=== PATIENT | female | born 1930 | race Caucasian/White ===

== ENCOUNTER 2017-02-04 18:28 | Inpatient (IN) | payer OTHER, BC, MEDICARE ==
[~2017-02-04] VITALS: Ht 149.9 cm; Wt 48.1 kg
[~2017-02-04 18:28] MED LIST: ACEPHEN650 MG PR; APAP325 MG PO; AZO BLADDER CO300 MG PO; AZO CRANBERRY PO; AZO CRANBERRY450 MG PO; BISAC-EVAC10 MG PR; CRANBERRY400 M1 PO; EXELON TOP; FIBRO-TABS1 TAB PO; FLEET ENEMA 131 UNIT RC; HALDOL 1MG TABLE1 MG PO; HALOPERIDOL1 MG PO; MERREM IV1 GM IV; MILK OF MAGNESI30 ML PO; MULTI-VIT WITH50 ML PO; NITROFURANTOIN100 MG PO; PRAMIPEXOLE DI0.5 MG PO; PRAVASTATIN SOD10 MG PO; PRINIVIL 5MG5 MG PO; RESOURCE 2.0 2237 ML PO; SINEMET 25-1001 TAB PO; TRAZODONE50 MG PO; VITAMIN C500 M3 PO; VITAMIN D1000 IU PO; VITAMIN D31000 IU PO
--- NOTE | 2017-02-04 18:49 | NUR ---
PT BROUGHT BACK TO ROOM 21.
--- NOTE | 2017-02-04 18:49 | NUR ---
PT TO ED WITH FAMILY FOR INCREASED NOT PRODUCTIVE "GURGLING" COUGH THAT STARTED THREE DAYS AGO. PT HAS BEEN EATING PUREED DIET AND FAMILY THINKS SHE MAY HAVE ASPIRATED. PT FEBRILE 100.3 IN TRIAGE, O2 SAT 93% ON RA.
--- NOTE | 2017-02-04 18:50 | NUR ---
PER PROVIDER, OKAY TO ORDER LABS AND XRAY.
--- NOTE | 2017-02-04 18:53 | ED GENERAL ADULT ---
History of Present Illness General Chief Complaint: General Adult Stated Complaint: PER DAUGHTER THINKS FLUID IN LUNGS Source: patient, family Exam Limitations: dementia Vital Signs & Intake/Output Vital Signs & Intake/Output Vital Signs Date Time Temp Pulse Resp B/P B/P Pulse O2 O2 Flow FiO2 Mean Ox Delivery Rate 02/05 0749 97.7 55 20 130/68 91 Room Air 02/05 0237 97.9 70 16 130/90 93 Room Air 02/04 2216 99.1 77 20 136/67 94 Room Air 02/04 2211 99.1 02/04 2132 101.0 02/04 2052 100.0 84 20 124/73 94 Room Air 02/04 1900 101.0 02/04 1846 100.3 90 15 110/60 93 Room Air Room Air ED Intake and Output 02/05 0000 02/04 1200 Intake Total 200 Output Total Balance 200 Intake, IV 200 Patient 105 lb Weight Weight Estimated Measurement Method Allergies Coded Allergies: NO KNOWN ALLERGIES (02/04/17) Reconcile Medications Carbidopa/Levodopa (Carbidopa-Levodopa 25-100 Tab) 25 MG-100 MG TABLET 1 TAB PO TID PARKINSONS (Reported) Hydroxyzine HCl 25 MG TABLET 0.5-1 TAB PO QHS SLEEP (Reported) Lisinopril 5 MG TABLET 1 TAB PO DAILY HTN (Reported) Nitrofurantoin Monohyd/M-Cryst (Nitrofurantoin [place]-Mcr 100 MG) 100 MG CAPSULE 1 CAP PO DAILY UTI (Reported) Pramipexole Di-HCl (Pramipexole Dihydrochloride) 0.75 MG TABLET 1 TAB PO TID RESTLESSNESS (Reported) Triage Note: PT TO ED WITH FAMILY FOR INCREASED NOT PRODUCTIVE "GURGLING" COUGH THAT STARTED THREE DAYS AGO. PT HAS BEEN EATING PUREED DIET AND FAMILY THINKS SHE MAY HAVE ASPIRATED. PT FEBRILE 100.3 IN TRIAGE, O2 SAT 93% ON RA. Triage Nurses Notes Reviewed? yes HPI: 86 yo F PMH HTN, HLD, CKD, parkinsons, dementia presenting with difficulty swallowing, cough, fevers. Patient had episode of difficulty swallowing 2-3 days ago, family concerned for possible aspiration events, switch to thicken liquids, had some difficulty administering her medications. Family noticed new cough for the past 2 days, associated chest congestion. Tactile fevers, chills. Patient denies chest pain, shortness of breath, palpitations, abdominal symptoms, urinary symptoms, or focal neurologic symptoms. Family concern for aspiration pneumonia, unsure of how to administer medications at home given the patient has had great difficulty swallowing. (GERALD LAW MD) Past History Travel History Traveled to [place] past 21 day No Medical History Any Pertinent Medical History? 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 Yes (GERALD LAW MD) Review of Systems Review of Systems Constitutional: Reports: chills, fever, malaise. EENTM: Reports: no symptoms. Respiratory: Reports: cough, sputum production. Denies: short of breath. Cardiovascular: Denies: chest pain, edema, orthopena, palpitations. GI: Reports: no symptoms. Genitourinary: Reports: no symptoms. Musculoskeletal: Reports: no symptoms. Skin: Reports: no symptoms. Neurological/Psychological: Reports: no symptoms. Hematologic/Endocrine: Reports: no symptoms. Immunologic/Allergic: Reports: no symptoms. All Other Systems: Reviewed and Negative (GERALD LAW MD) Physical Exam Physical Exam General Appearance: well developed/nourished, no apparent distress Head: atraumatic Eyes: Bilateral: normal appearance. Ears, Nose, Throat: normal ENT inspection Neck: normal inspection, supple, full range of motion Respiratory: no respiratory distress, rhonchi Cardiovascular: regular rate/rhythm, normal peripheral pulses Gastrointestinal: soft, non-tender Extremities: normal inspection Neurologic/Psych: awake, alert Comments: Neurologic: Pill-rolling tremor of hands with akathisia movements of neck and extremities, following commands, oriented to person and place Pulmonary: Coarse breath sounds bilaterally, left greater than right Core Measures ACS in differential dx? 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 or GI infection.] Plan of Care: Orders Procedure Date/time Status Nothing by Mouth 02/05 B Active LACTIC ACID 02/05 0916 Active LACTIC ACID 02/05 0616 Active STREP PNEUMO URINARY ANTIGEN 02/05 0350 Active LEGIONELLA URINARY ANTIGEN 02/05 0350 Active URINALYSIS 02/05 0350 Complete Pathway - chart 02/05 0024 Active House Staff 02/05 0024 Active Patient Data 02/05 002 Active CULTURE,URINE 02/05 002 Active LOWER RESPIRATORY CULTURE 02/05 002 Active BLOOD CULTURE 02/05 0024 Active Code Status 02/05 0024 Active SWALLOW EVALUATION 02/05 UNK Active PT Evaluate & Treat 02/05 UNK Active Lab Add-on Test 02/05 UNK Active VTE Mechanical Prophylaxis 02/05 UNK Active Straight Cath 02/05 UNK Active Precautions 02/05 UNK Active FingerStick- Glucose 02/05 UNK Active Vital Signs 02/04 2353 Active Teach/Educate 02/04 2353 Active Pain Treatment and Response 02/04 2353 Active Nutritional Intake, Monitor 02/04 2353 Active Isolation 02/04 2353 Active Intake & Output 02/04 2353 Complete Patient Care Conference 02/04 2353 Active Activity/Ambulation 02/04 2353 Active Patient Data 02/04 2236 Active Misc Message 02/04 2207 Active ED Holding Orders 02/04 2207 Active Vital Signs 02/04 220 Complete Code Status 02/04 220 Complete Intake & Output 02/04 2150 Active Admit to inpatient 02/04 2123 Active Add-on Test (ER Only) 02/04 1853 Active TROPONIN LEVEL 02/04 184 Complete COMPREHENSIVE METABOLIC PANEL 02/04 1849 Complete CBC WITHOUT DIFFERENTIAL 02/04 184 Complete B-TYPE NATRIURETIC PEP (BNP) 02/04 184 Complete EKG 02/04 184 Active Current Medications Sig/Deja Start time Last Medication Dose Stop Time Status Admin Enoxaparin Sodium 40 MG DAILY 02/05 1000 AC (Lovenox) Ampicillin Sodium/ 1,500 MG Q6 02/05 0100 AC 02/05 Sulbactam Sodium 0600 (Unasyn) Sodium Chloride 100 ML (Normal Saline 0.9%) Acetaminophen 1,000 MG Q6P PRN 02/05 30 AC (Ofirmev) Diclofenac Sodium 1 KELLEY 4 TIMES/DAY PRN 02/05 30 AC (Voltaren 1% Gel) Sodium Chloride 1,000 ML CONTINOUS INFUSION 02/05 30 AC 02/05 (Normal Saline 0.9%) 02/05 1349 0128 Ceftazidime 0 .STK-MED ONE 02/04 2119 CAN (Fortaz) Aspirin 325 MG ONCE ONE 02/04 1945 CAN (Aspirin) 02/04 1946 Laboratory Tests 02/05/17 0648: Lactic Acid Pending 02/05/17 0500: Urine Color YEL, Urine Clarity CLEAR, Urine pH 7.0, Ur Specific [place] <= 1.005 , Urine Protein NEG, Urine Ketones NEG, Urine Nitrite NEG, Urine Bilirubin NEG, Urine Urobilinogen 0.2, Ur Leukocyte Esterase NEG, Ur Microscopic EXAM NOT REQUIRED, Urine Hemoglobin NEG, Urine Glucose NEG 02/04/17 192: Anion Gap 8, Estimated GFR > 60, BUN/Creatinine Ratio 25.7 H, Glucose 143 H, Calcium 8.8, Total Bilirubin 1.1, AST 24, ALT 19, Alkaline Phosphatase 67, Troponin I < 0.01, Ila-H-Ibrlbepisxb Pept 1490 H, Total Protein 6.4, Albumin 3.6, Globulin 2.8, Albumin/Globulin Ratio 1.3, CBC w Diff NO MAN DIFF REQ, RBC 3.34 L, MCV 90.9, MCH 30.6, RDW 14.0, MPV 7.1 L, Gran % 85.4 H, Lymphocytes % 7.9 L, Monocytes % 6.2, Eosinophils % 0.2, Basophils % 0.3, Absolute Granulocytes 4.9, Absolute Lymphocytes 0.5 L, Absolute Monocytes 0.4, Absolute Eosinophils 0, Absolute Basophils 0, PUBS MCHC 33.7 Microbiology 02/05 050 URINE ROUT: Urine Culture - RECD 02/05 350 URINE ROUT: Legionella Antigen - COLB 02/05 350 URINE ROUT: Streptococcus pneumoniae Antigen (M - COLB 02/05 142 BLOOD: Blood Culture - RECD 02/05 142 BLOOD: Blood Culture - RECD 02/06 24 LOWER RESP: Respiratory Culture - COLB 02/06 24 LOWER RESP: Gram Stain - COLB Physician MDM: 86 yo F PMH HTN, HLD, CKD, parkinsons, dementia presenting with difficulty swallowing, cough, fevers. VSS, febrile to 101, remainder of exam as above. BMP with mild hyponatremia to 134. CBC unremarkable, no leukocytosis. Chest x-ray with bilateral infiltrates. Ceftaz for aspiration pneumonia. Given patient unable to tolerate by mouth without possibly recurrent aspiration, will admit for ongoing IV antibiotics, swallowing eval, disposition planning. (GERALD LAW MD) Initial ED EKG: NSR (GERALD LAW MD) Departure Departure Disposition: STILL A PATIENT Condition: Stable Clinical Impression Primary Impression: Aspiration pneumonia Departure Forms: Customer Survey General Discharge Information Admission Note Spoke With: BENJAMIN PATINO MD Documentation of Exam: Documentation of any treatments & extenuating circumstances including Concerns Regarding Discharge (functional status, medication knowledge or non-compliance, living conditions, etc.) that warrant an admission rather than observation: [ Patient has been unable tolerate food or medications at home by mouth without aspiration, patient has developed fevers and cough with aspiration pneumonia, she requires admission to the hospital for ongoing administration of IV fluids for rehydration, IV antibiotics for treatment of aspiration pneumonia, patient was discharged there is a high likelihood that she would be unable to tolerate her antibiotics by mouth, with Progressive dehydration due to inability to tolerate significant by mouth, patient were discharged she has a high risk of progression of infection with associated significant morbidity and possibly mortality.] (GERALD LAW MD) Resident Co-Sign Statement Statement: ED Attending supervision documentation- [X] I saw and evaluated the patient. I have also reviewed all the pertinent lab results and diagnostic results. I agree with the findings and the plan of care as documented in the Resident's documentation. [X] I have reviewed the ED Record and agree with the Resident's documentation. [] Additions or exceptions (if any) to the Resident's note and plan are summarized below: [] (REBECA GAFFNEY,DAVID Franco) Critical Care Note Critical Care Note Critical Care Time: non-applicable (GERALD LAW MD)
--- NOTE | 2017-02-04 19:23 | RADIOLOGY REPORT ---
EXAMINATION: XR PORTABLE CHEST CLINICAL INFORMATION: Cough and fever. Evaluate for pneumonia. COMPARISON: Chest x-ray 05/27/2015. TECHNIQUE: Portable frontal view of the chest was obtained. FINDINGS: Single AP view of the chest demonstrates pulmonary hypoinflation and bronchovascular crowding. Opacities within the medial region of the right lung base as well as within the left retrocardiac region are nonspecific and may reflect atelectasis given low lung volumes although superimposed infiltrates cannot be excluded. Cardiomediastinal contours are within normal limits for technique. Soft tissues appear unremarkable. No acute osseous abnormality. IMPRESSION: Opacities within the medial region of the right lung base. Left retrocardiac opacities are also noted. These findings are nonspecific and may reflect atelectasis although superimposed infection cannot be excluded. Consider correlation with PA and lateral chest x-ray.
[2017-02-04 19:28] LABS: ABSOLUTE BASOPHIL COUNT 0 /CUMM (0.0-0.2); ABSOLUTE EOSINOPHIL COUNT 0 /CUMM (0.0-0.7); ABSOLUTE GRANULOCYTE CT 4.9 /CUMM (1.4-6.5); ABSOLUTE LYMPH COUNT 0.5 /CUMM (1.2-3.4); ABSOLUTE MONOCYTE COUNT 0.4 /CUMM (0.10-0.60); BASOPHIL % 0.3 % (0.0-2.0); EOSINOPHIL % 0.2 % (0-5); HEMATOCRIT 30.3 % (37-47); MEAN CORPUSCULAR HGB 30.6 PG (27.0-31.0); MEAN CORPUSCULAR HGB CONC 33.7 G/DL (33.0-37.0); MEAN CORPUSCULAR VOLUME 90.9 FL (81.0-99.0); MEAN PLATELET VOLUME 7.1 FL (7.4-10.4); PLATELET COUNT 205 /CUMM (130-400); RED BLOOD CELL CT 3.34 /CUMM (4.20-5.40); WHITE BLOOD CELL COUNT 5.8 /CUMM (4.8-10.8)
[2017-02-04 19:38] LABS: GRANULOCYTE % 85.4 % (42.2-75.2)
--- NOTE | 2017-02-04 19:38 | NUR ---
PT TO ROOM 21 IN W/C. LIFTED TO STRETCHER BY SON IN LAW. PER FAMILY PT IS NON-AMBULATORY AT BASELINE, DTR/SON IN LAW AND PAID CAREGIVER PROVIDE 24 HOUR CARE AT HOME. PT HAS PARKINSON'S AND DEMENTIA, NON-AMBULATORY SINCE SURGERY FOR OSTEOMYELITIS (REMOTE). DTR REPORTS PT IS ON A PUREE DIET, IS NOT AWARE OF ANY ASPIRATION ISSUES. PT WITH AUDIBLE CONGESTED COUGH, NO APPARENT SOB. DTR STATING SHE WANTS PT ADMITTED FOR IV ANTIBIOTICS PT AT TIMES REFUSES TO SWALLOW (NOT NEW) AND SHE IS NOT ABLE TO GIVE ANTIBIOTICS AT HOME.
[2017-02-04] MEDS ORDERED: NITROFURANTOIN100 M6 PO (20:13)
[2017-02-04] MEDS ORDERED: CARBIDOPA-LEVO1 EAC7 PO (20:13)
[2017-02-04] MEDS ORDERED: HYDROXYZINE HCL25 M2 PO (20:14)
[2017-02-04] MEDS ORDERED: LISINOPRIL5 M1 PO (20:14)
[2017-02-04] MEDS ORDERED: PRAMIPEXOLE D0.75 MG PO (20:14)
--- NOTE | 2017-02-04 20:52 | NUR ---
PT RESTLESS ON STRETCHER BUT GENERALLY NO DISTRESS. OCC CONGESTED COUGH. AWAITING DISPO.
--- NOTE | 2017-02-04 21:37 | NUR ---
MEDICATED PER EMAR. FAMILY REMAINS AT BEDSIDE. PT REMAINS SOMEWHAT RESTLESS, NOT SIGNIFICANTLY CHANGED FROM BASELINE.
--- NOTE | 2017-02-04 22:16 | NUR ---
FAMILY LEAVING FOR NIGHT. PT RESTLESS ON STRETCHER, NO ATTEMPTS TO GET UP, NO DISTRESS. OCC COUGH. AWAITING ADMISSION.
--- NOTE | 2017-02-04 22:49 | NUR ---
PT GOING TO ROOM 229-1
--- NOTE | 2017-02-04 22:58 | History & Physical ---
LOLA GAFFNEY,GLENNA 02/04/17 2246: General Information and HPI MD Statement: I have seen and personally examined DANIEL REDDY and documented this H&P. The patient is a 86 year old F who presented with a patient stated chief complaint of []. Source of Information: patient Exam Limitations: dementia History of Present Illness: The patient is an 86-year-old female, brought to the hospital by the family with chief complaints of difficulty in swallowing, cough, fever since 3 days. We talked to the daughter and Son in law over the phone. According to them, patient had episodes of difficulty in swallowing around 2-3 days ago, so she was switched to pured diet. Family thinks probably she has aspirated. That's why she developed new cough since last 2 days, which is associated with congestion of the chest, fever. They were not willing to give detail Hx over phone, and told that will come jewel stripper to give all information. Past medical history of hypertension, hyperlipidemia, chronic kidney disease, Parkinson's, dementia, DJD, history of right foot osteomyelitis, Personal history-nonambulatory at baseline, has 24-hour paid caregiver, Allergies/Medications Allergies: Coded Allergies: NO KNOWN ALLERGIES (02/04/17) Home Med list Carbidopa/Levodopa (Carbidopa-Levodopa 25-100 Tab) 25 MG-100 MG TABLET 1 TAB PO TID PARKINSONS (Reported) Hydroxyzine HCl 25 MG TABLET 0.5-1 TAB PO QHS SLEEP (Reported) Lisinopril 5 MG TABLET 1 TAB PO DAILY HTN (Reported) Nitrofurantoin Monohyd/M-Cryst (Nitrofurantoin [place]-Mcr 100 MG) 100 MG CAPSULE 1 CAP PO DAILY UTI (Reported) Pramipexole Di-HCl (Pramipexole Dihydrochloride) 0.75 MG TABLET 1 TAB PO TID RESTLESSNESS (Reported) Past History Travel History Traveled to [place] past 21 day No Medical History Neurological: dementia, Parkinson's disease EENT: NONE Cardiovascular: hypertension, hyperlipidemia Respiratory: NONE Gastrointestinal: NONE Hepatic: NONE Renal: CHRONIC KIDNEY DISEASE Musculoskeletal: degen joint disease, R FOOT OSTEOMYELITIS Psychiatric: NONE Endocrine: NONE Blood Disorders: NONE Cancer(s): NONE 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 Comments cannt comment due to patient clinical status Exam & Diagnostic Data Last 24 Hrs of Vital Signs/I&O Vital Signs Date Time Temp Pulse Resp B/P B/P Pulse O2 O2 Flow FiO2 Mean Ox Delivery Rate 02/05 237 97.9 70 16 130/90 93 Room Air 02/04 2216 99.1 77 20 136/67 94 Room Air 02/04 2211 99.1 02/04 2132 101.0 02/04 205 100.0 84 20 124/73 94 Room Air 02/04 1900 101.0 02/04 1846 100.3 90 15 110/60 93 Room Air Room Air Intake & Output 02/05 0800 02/05 0000 02/04 1600 Intake Total 200 Output Total Balance 200 Intake, IV 200 Patient 47.627 kg Weight Weight Estimated Measurement Method Physical Exam General Appearance Mild Distress Skin No Rashes, No Breakdown Cardiovascular Normal S1, Normal S2 Lungs mild crackles, occasional wheezes Abdomen Soft Neurological Dementia Extremities No Clubbing, No Cyanosis, No Edema Vascular Normal Pulses, Pulses Symmetrical Last 24 Hrs of Labs/[place]: Laboratory Tests 02/04/171920: Anion Gap 8, Estimated GFR > 60, BUN/Creatinine Ratio 25.7 H, Glucose 143 H, Calcium 8.8, Total Bilirubin 1.1, AST 24, ALT 19, Alkaline Phosphatase 67, Troponin I < 0.01, Qad-V-Rnjymuovgth Pept 1490 H, Total Protein 6.4, Albumin 3.6, Globulin 2.8, Albumin/Globulin Ratio 1.3, CBC w Diff NO MAN DIFF REQ, RBC 3.34 L, MCV 90.9, MCH 30.6, RDW 14.0, MPV 7.1 L, Gran % 85.4 H, Lymphocytes % 7.9 L, Monocytes % 6.2, Eosinophils % 0.2, Basophils % 0.3, Absolute Granulocytes 4.9, Absolute Lymphocytes 0.5 L, Absolute Monocytes 0.4, Absolute Eosinophils 0, Absolute Basophils 0, PUBS MCHC 33.7 Microbiology 02/05 350 URINE ROUT: Legionella Antigen - COLB 02/05 350 URINE ROUT: Streptococcus pneumoniae Antigen (M - COLB 02/05 142 BLOOD: Blood Culture - RECD 02/05 142 BLOOD: Blood Culture - RECD 02/06 24 URINE ROUT: Urine Culture - COLB 02/06 24 LOWER RESP: Respiratory Culture - COLB 02/06 24 LOWER RESP: Gram Stain - COLB Assessment/Plan Assessment: The patient is an 86-year-old female, brought to the hospital by the family with chief complaints of difficulty in swallowing, cough, fever since 3 days.Most of the history is from ED notes. Vital signs at the time of admission - temperature 100.3, pulse 90, respiratory rate 15, blood pressure 110/60, SPO2 93% on room air Chest x-ray -Opacities within the medial region of the right lung base. Left retrocardiac opacities are also noted. These findings are nonspecific and may reflect atelectasis although superimposed infection cannot be excluded. Pertinent labs-hemoglobin 10.2, hematocrit 30.3, granulocyte -85.4%, Na -134, Glucose -143, proBNP 1490 Plan - Aspiration pneumonia * We will admit the patient to the general medical floor * We'll keep the patient nothing by mouth, and start her on gentle hydration * We will do panculture and start patient on IV Unasyn * We will to swallow evaluation tomorrow morning * I also want to rule out any possibility of acute stroke, as patient had a new onset of difficulty in swallowing * We will talk to the family in detail, tomorrow morning * PT/OT * we will also check the medication list in morning * We will check lactic acid level, urine for legionella, urine for pneumococcal Ag to r/o CAP CODE STATUS-full code, will discuss with the family tomorrow to confirm her status DVT prophylaxis-heparin As Ranked By This Provider Problem List: 1. Parkinson disease 2. Dementia 3. Hypertension 4. Aspiration pneumonia Core Measures/Miscellaneous Acute Coronary Syndrome ACS Diagnosis: No Cerebrovascular Accident CVA/TIA Diagnosis: No Congestive Heart Failure CHF Diagnosis: No Venous Thromboembolism VTE Risk Factors: Age > 40, Immobility, paresis No Mech VTE prophylaxis d/t: No contraindications No VTE Pharm Prophylaxis d/t: No contraindications VTE Diagnosis: No VTE Type: NONE VTE Confirmed by (Test): NONE Severe Sepsis Severe Sepsis Present: No Septic Shock Septic Shock Present: No Miscellaneous Documentation Attending [facility] Care Physician: DENY GA MD Patient sees these Specialists not aware Level of Patient Care: General Medicine WILI HERNÁNDEZ 02/05/17 0121: Resident Review Statement Resident Statement: examined this patient, discussed with internal sales engineer, agreed with internal sales engineer Other Findings: Patient is 86-year-old woman with a past medical history significant for hypertension and hyperlipidemia, chronic kidney disease, parkinsonism's, dementia presented to the ED for further evaluation of difficulty swallowing with cough. Patient was minimally verbal at the time of evaluation, so most of the history was obtained from the family .As per family patient has been having difficulty in swallowing for the last 2-3 days. The family was concerned about the aspiration and started her on thickened liquids. Also they found difficulty in administration of some of her medications. According to family patient has also cough without any phlegm for the last 2 days associated with chest congestion with fever and chills. No episode of chest discomfort or trouble breathing or palpitations. No diarrhea or constipation nausea or vomiting. The family were concerned about possible aspiration and brought to the ED for further evaluation. Vitals on admission: Temperature 1.3, pulse 90, respiratory rate 15, blood pressure 110/66 saturating more than 92% on room air. On examination General Appearance: patient appeared weak and thin without any apparent distress , minimally verbal Eyes Bilateral: normal appearance. Ears, Nose, Throat: normal ENT inspection Neck: normal inspection, supple, full range of motion Respiratory: Rhonchi present on the right lung martinez Cardiovascular: regular rate/rhythm, normal peripheral pulses Gastrointestinal: soft, non-tender Extremities: normal inspection Neurologic/Psych: awake, alert other neurological exam cannot be elicited. Pertinent labs on admission: Normal WBC count, H&H low 10.2/30.3, slight hyponatremia hyponatremia 134 Chest x-ray : Opacities within the medial region of the right lung base. Left retrocardiac opacities are also noted. These findings are nonspecific and may reflect atelectasis although superimposed infection cannot be excluded. Consider correlation with PA and lateral chest x-ray. Assessment and plan: 1. Aspiration pneumonia: * We'll admit the patient GenMed floor * Obtain blood cultures and sputum cultures. Start the patient on IV Unasyn for possible aspiration * Keep the patient nothing by mouth for now obtain formal swallow admission the morning * Continue with gentle hydration. * Continue with aspiration precautions * Hold any medications for now * Confirm medication from the pharmacy in the morning. DVT prophylaxis with Lovenox Mild to moderate pain controlled with IV Tylenol Patient is full code(he called the family at around midnight, but the family was not sure about the CODE STATUS, will confirm in the morning, keep the patient full code for now) CAREY GAFFNEY, [facility] 02/05/17 0238: Attending MD Review Statement Attending Statement Attending MD Statement: examined this patient, discuss w/resident/PA/TRIM MACHINE ADJUSTER, agreed w/resident/PA/TRIM MACHINE ADJUSTER Attending Assessment/Plan: 86 yo F with h/o advanced dementia, Parkinson's disease, HTN, right heel osteomyelitis s/p I and D with 4 weeks of antibiotics (2014), is brought in by family for concerns of aspiration pneumonia. History as noted from ER records, as patient demented and did not verbalise, tried to reach family who provided a few details. 3 days ago, family noted patient was having difficulty swallowing so they started giving her thickened liquids and crushed her meds. Non productive cough, chest congestion++. Tactile fevers and chills. Vitals: Tmax 101, no hypoxia or tachycardia. Awake, lethargic, does not respond to questions, opens eyes and winces, Chest basilar rhonchi (R>L). Labs: no leukocytosis, BUN 18, trop neg, proBNP 1490. EKG: NSR. CXR: opacities right lung base, left retrocardiac opacity. 1. Aspiration pneumonia. GM admit, panculture, NPO, swallow eval in AM, IV fluids, IV Unasyn. Please check urine legionella and strep Ag. Check urinalysis, lactic acid. Check UA to rule out UTI. Avoid delirium triggers. PT eval, ? placement. DVT ppx Lovenox. Full code (this needs to be discussed with family in AM). Med list needs to be confirmed in AM
--- NOTE | 2017-02-04 23:03 | NUR ---
REPORT GIVEN TO GRABIEL ON 2N.
[2017-02-05 02:37] VITALS: BP 130/90
--- NOTE | 2017-02-05 02:39 | Admission Certification ---
Admission Certification Certification Statement - As attending physician, I certify that at the time of - admission, based on clinical presentation, severity of - symptoms, need for further diagnostic testing and - therapeutic interventions, and risk of adverse outcomes - without in-hospital treatment, in my clinical assessment, - this patient requires an acute hospital stay for a minimum - of two nights or longer. I have also considered psychsocial - factors such as support system, advanced age, financial - issues, cognitive issues, and failed out-patient treatments, - past re-admission history, safety of patient, and lack of - compliance as applicable. Specific rationale supporting this admission is: Aspiration pneumonia.
[2017-02-05 07:49] VITALS: BP 130/68
--- NOTE | 2017-02-05 07:58 | PN- Housestaff ---
WILI HERNÁNDEZ 02/05/17 0751: Subjective Follow-up For: Aspiration pneumonia Subjective: Patient seen and examined in the morning vitals are stable, lying comfortably in the bed. Denies any pain. Other review of system is negative continue with IV Unasyn for possible aspiration pneumonia we will confirm her medications in the morning. Also family is not around yet for confirmation of CODE STATUS continue with full code for now. Review of Systems Constitutional: Denies: chills, diaphoresis, fever, malaise. EENTM: Denies: blurred vision, double vision, visual changes, eye pain, eye drainage. Cardiovascular: Denies: chest pain, edema. Respiratory: Denies: cough, hemoptysis, orthopnea. Gastrointestinal: Denies: abdominal pain, bloating, constipation, diarrhea. Genitourinary: Denies: discharge, dysuria, frequency, hematuria. Musculoskeletal: Denies: back pain, gout, joint swelling. Objective Last 24 Hrs of Vital Signs/I&O Vital Signs Date Time Temp Pulse Resp B/P B/P Pulse O2 O2 Flow FiO2 Mean Ox Delivery Rate 02/05 0749 97.7 55 20 130/68 91 Room Air 02/05 0237 97.9 70 16 130/90 93 Room Air 02/04 2216 99.1 77 20 136/67 94 Room Air 02/04 2211 99.1 02/04 2132 101.0 02/04 2052 100.0 84 20 124/73 94 Room Air 02/04 1900 101.0 02/04 1846 100.3 90 15 110/60 93 Room Air Room Air Intake & Output 02/05 0800 02/05 0000 02/04 1600 Intake Total 200 Output Total Balance 200 Intake, IV 200 Patient 105 lb Weight Weight Estimated Measurement Method Physical Exam General Appearance: Alert, Oriented X3 Skin: No Rashes, No Breakdown Skin Temp/Moisture Exam: Warm/Dry HEENT: Atraumatic, PERRLA Neck: Supple, No JVD Cardiovascular: Regular Rate, Normal S1, Normal S2 Lungs: Clear to Auscultation Abdomen: Normal Bowel Sounds, Soft Neurological: Normal Speech, Strength at 5/5 X4 Ext Extremities: No Clubbing, No Cyanosis Assessment/Plan Assessment: Patient is 86-year-old woman with a past medical history significant for hypertension and hyperlipidemia, chronic kidney disease, parkinsonism's, dementia presented to the ED for further evaluation of difficulty swallowing with cough. Chest x-ray consistent with possible aspiration pneumonia Assessment and plan: 1. Aspiration pneumonia: * We'll admit the patient [facility] floor * Obtain blood cultures and sputum cultures. Start the patient on IV Unasyn for possible aspiration * Keep the patient nothing by mouth for now obtain formal swallow admission the morning * Continue with gentle hydration. * Continue with aspiration precautions * Hold any medications for now * Confirm medication from the pharmacy in the morning. DVT prophylaxis with Lovenox Mild to moderate pain controlled with IV Tylenol Patient is full code(he called the family at around midnight, but the family was not sure about the CODE STATUS, will confirm in the morning, keep the patient full code for now) Problem List: 1. Parkinson disease 2. Dementia Pain Ratin Pain Location: No pain at this time Pain Goal: Pain 4 or less Pain Plan: when necessary Tylenol Tomorrow's Labs & Rationales: CBC and BEP tomorrow STEVE GAFFNEY,[facility] 02/05/17 1453: Attending MD Review Statement Attending Statement Attending MD Statement: examined this patient, discuss w/resident/PA/PORTAINER OPERATOR, agreed w/resident/PA/PORTAINER OPERATOR, discussed with family, reviewed EMR data (avail), discussed with nursing, reviewed images, amended to note Attending Assessment/Plan: Patient seen and examined, denies any complaints. Daughter is sitting at bedside. Patient is admitted with aspiration pneumonia. Vital Signs Date Time Temp Pulse Resp B/P B/P Pulse O2 O2 Flow FiO2 Mean Ox Delivery Rate 02/05 1422 97.8 60 20 112/80 93 Room Air 02/05 0749 97.7 55 20 130/68 91 Room Air 02/05 0237 97.9 70 16 130/90 93 Room Air 02/04 221 99.1 77 20 136/67 94 Room Air 02/04 221 99.1 02/04 2132 101.0 02/042 100.0 84 20 124/73 94 Room Air 02/04 1900 101.0 02/04 1846 100.3 90 15 110/60 93 Room Air Room Air on exam; awak,e nad. cv; s1,s2, rrr. resp; junky breath sounds right lung. abd; soft, nt, bs+ ext; no edema. Laboratory Tests 02/05 02/05 02/05 1150 1150 0648 Chemistry Sodium (137 - 145 mmol/L) 137 Potassium (3.5 - 5.1 mmol/L) 4.1 Chloride (98 - 107 mmol/L) 105 Carbon Dioxide (22 - 30 mmol/L) 24 Anion Gap (5 - 16) 8 BUN (7 - 17 mg/dL) 17 Creatinine (0.5 - 1.0 mg/dL) 0.7 Estimated GFR (>60 ml/min) > 60 BUN/Creatinine Ratio (7 - 25 %) 24.3 Lactic Acid (0.7 - 2.1 mmol/L) 0.9 0.9 Hematology CBC w Diff NO MAN DIFF REQ WBC (4.8 - 10.8 /CUMM) 6.4 RBC (4.20 - 5.40 /CUMM) 3.50 L Hgb (12.0 - 16.0 G/DL) 10.8 L Hct (37 - 47 %) 32.0 L MCV (81.0 - 99.0 FL) 91.3 MCH (27.0 - 31.0 PG) 30.8 RDW (11.5 - 14.5 %) 14.3 Plt Count (130 - 400 /CUMM) 210 MPV (7.4 - 10.4 FL) 7.4 Gran % (42.2 - 75.2 %) 73.0 Lymphocytes % (20.5 - 51.1 %) 19.4 L Monocytes % (1.7 - 9.3 %) 5.7 Eosinophils % (0 - 5 %) 1.6 Basophils % (0.0 - 2.0 %) 0.3 Absolute Granulocytes (1.4 - 6.5 /CUMM) 4.7 Absolute Lymphocytes (1.2 - 3.4 /CUMM) 1.2 Absolute Monocytes (0.10 - 0.60 /CUMM) 0.4 Absolute Eosinophils (0.0 - 0.7 /CUMM) 0.1 Absolute Basophils (0.0 - 0.2 /CUMM) 0 PUBS MCHC (33.0 - 37.0 G/DL) 33.7 02/05 02/04 0500 1921 Chemistry Sodium (137 - 145 mmol/L) 134 L Potassium (3.5 - 5.1 mmol/L) 5.0 Chloride (98 - 107 mmol/L) 99 Carbon Dioxide (22 - 30 mmol/L) 26 Anion Gap (5 - 16) 8 BUN (7 - 17 mg/dL) 18 H Creatinine (0.5 - 1.0 mg/dL) 0.7 Estimated GFR (>60 ml/min) > 60 BUN/Creatinine Ratio (7 - 25 %) 25.7 H Glucose (65 - 99 mg/dL) 143 H Calcium (8.4 - 10.2 mg/dL) 8.8 Total Bilirubin (0.2 - 1.3 mg/dL) 1.1 AST (14 - 36 U/L) 24 ALT (9 - 52 U/L) 19 Alkaline Phosphatase (<127 U/L) 67 Troponin I (< 0.11 ng/ml) < 0.01 Uqi-Y-Cyecauazkzz Pept (<125 pg/mL) 1490 H Total Protein (6.3 - 8.2 g/dL) 6.4 Albumin (3.5 - 5.0 g/dL) 3.6 Globulin (1.9 - 4.2 gm/dL) 2.8 Albumin/Globulin Ratio (1.1 - 2.2 %) 1.3 Hematology CBC w Diff NO MAN DIFF REQ WBC (4.8 - 10.8 /CUMM) 5.8 RBC (4.20 - 5.40 /CUMM) 3.34 L Hgb (12.0 - 16.0 G/DL) 10.2 L Hct (37 - 47 %) 30.3 L MCV (81.0 - 99.0 FL) 90.9 MCH (27.0 - 31.0 PG) 30.6 RDW (11.5 - 14.5 %) 14.0 Plt Count (130 - 400 /CUMM) 205 MPV (7.4 - 10.4 FL) 7.1 L Gran % (42.2 - 75.2 %) 85.4 H Lymphocytes % (20.5 - 51.1 %) 7.9 L Monocytes % (1.7 - 9.3 %) 6.2 Eosinophils % (0 - 5 %) 0.2 Basophils % (0.0 - 2.0 %) 0.3 Absolute Granulocytes (1.4 - 6.5 /CUMM) 4.9 Absolute Lymphocytes (1.2 - 3.4 /CUMM) 0.5 L Absolute Monocytes (0.10 - 0.60 /CUMM) 0.4 Absolute Eosinophils (0.0 - 0.7 /CUMM) 0 Absolute Basophils (0.0 - 0.2 /CUMM) 0 PUBS MCHC (33.0 - 37.0 G/DL) 33.7 Urines Urine Color (YEL,AMB,STR) YEL Urine Clarity (CLEAR) CLEAR Urine pH (5.0 - 8.0) 7.0 Ur Specific [place] (1.001 - 1.035) <= 1.005 Urine Protein (NEG,<30 MG/DL) NEG Urine Ketones (NEG) NEG Urine Nitrite (NEG) NEG Urine Bilirubin (NEG) NEG Urine Urobilinogen (0.1 - 1.0 EU/dl) 0.2 Ur Leukocyte Esterase (NEG) NEG Ur Microscopic EXAM NOT REQUIRED Urine Hemoglobin (NEG) NEG Urine Glucose (N MG/DL) NEG A/P; 86 y/o F with pmh sig for advanced dementia, Parkinson's disease, HTN, admitted with possible aspiration pneumonia. Patient failed swallow evaluation. Now afebrile. Has been started on Unasyn. Would recommend follow-up on cultures. Patient failed swallow evaluation and will be reevaluated in the next 48 hours. Would recommend putting an NG tube so that she can receive her medications. Continue very gentle IV hydration. Patient fails second swallow evaluation, her goals of care willing to be discussed with the daughter. DVT px: Lovenox.
[2017-02-05 12:11] LABS: ABSOLUTE BASOPHIL COUNT 0 /CUMM (0.0-0.2); ABSOLUTE EOSINOPHIL COUNT 0.1 /CUMM (0.0-0.7); ABSOLUTE GRANULOCYTE CT 4.7 /CUMM (1.4-6.5); ABSOLUTE LYMPH COUNT 1.2 /CUMM (1.2-3.4); ABSOLUTE MONOCYTE COUNT 0.4 /CUMM (0.10-0.60); BASOPHIL % 0.3 % (0.0-2.0); EOSINOPHIL % 1.6 % (0-5); MEAN CORPUSCULAR HGB 30.8 PG (27.0-31.0); MEAN CORPUSCULAR HGB CONC 33.7 G/DL (33.0-37.0); MEAN CORPUSCULAR VOLUME 91.3 FL (81.0-99.0); MEAN PLATELET VOLUME 7.4 FL (7.4-10.4); PLATELET COUNT 210 /CUMM (130-400); RBC DISTRIBUTION WIDTH 14.3 % (11.5-14.5); WHITE BLOOD CELL COUNT 6.4 /CUMM (4.8-10.8)
[2017-02-05 14:22] VITALS: BP 112/80
--- NOTE | 2017-02-05 14:50 | NUR ---
1400- SPEECH THERAPIST HERE FOR SWALLOW EVAL. PT COUGHING AND HAVING DIFFICULTY SWALLOWING EVEN APPLESAUCE. RECOMMENDATIONS ARE TO KEEP PT NPO AND HAVE REPEAT SWALLOW EVAL ON TUESDAY. DR. SHAYNA JOYCE NOTIFIED OF ABOVE. NOT ABLE TO GIVE PT ORAL MEDICATIONS. DR. JOYCE TO SPEAK TO PHARMACY ABOUT WHICH MEDS CAN BE CHANGED TO IV.
--- NOTE | 2017-02-05 14:54 | Event Note ---
Event Note Event Note: Pt failed swallow evaluation. Pharmacy confirmed that there is no substitution for her parkinson meds. We spoke to her daughter, Tamara, over the phone, who consented to placement of NGT to administer meds. Both Dr. Olivia Conrad and myself witnessed the consent. We will also get nutrition consult for assisted feeding in case pt continues to fail swallow eval.
--- NOTE | 2017-02-05 17:33 | RADIOLOGY REPORT ---
EXAMINATION: XR CHEST PORTABLE CLINICAL INFORMATION: NG tube placement. COMPARISON: Chest radiography 02/04/2017. TECHNIQUE: Portable frontal view of the chest was obtained. FINDINGS: NG tube terminates over the stomach. Persistent mild asymmetric elevation of the right hemidiaphragm. There is a new small nodular opacity overlying the right lower lung which is nonspecific. Linear opacification in the mid to lower left lung and consistent with atelectasis. Bronchovascular crowding at the medial right lung base. No pleural effusion or pneumothorax. Mediastinal contours are unchanged. Aortic atherosclerotic calcification. No acute osseous abnormalities. Safety clip overlies the right abdomen. IMPRESSION: 1. NG tube terminates over the stomach. 2. New nonspecific small nodular opacity overlying the right upper lung. Recommend short-term radiographic follow-up to ensure resolution.
--- NOTE | 2017-02-05 17:48 | NUR ---
1445- PER DR. JOYCE, PLACE NGT IN ORDER FOR MEDICATIONS TO BE GIVEN. PT NPO DUE TO FAILED SWALLOW EVAL. PER DR. JOYCE, PT CANNOT BE WITHOUT PARKIN[facility] MEDS 1645- NGT PLACED TO R NARE AT 51 CM. XRAY CONFIRMATION OF PLCMT PENDING 264- PER DR. JOYCE, XRAY REVIEWED BY HER AND NGT IS IN CORRECT PLACEMENT AND IS OK TO USE.
--- NOTE | 2017-02-05 20:14 | NUR ---
1900- PT RESTLESS, PULLING AT NGT AND ATTEMPTING TO REMOVE. REQUESTED DR JOYCE TO ASSESS AT BEDSIDE. PT MINIMALLY VERBAL AT BASELINE. PER DR. JOYCE, SHE WILL PLACE ORDER FOR SOFT BILATERAL WRIST RESTRAINTS.
[2017-02-05 22:32] VITALS: BP 110/80
[2017-02-05 22:35] VITALS: BP 160/80
[2017-02-06 07:24] VITALS: BP 174/60
--- NOTE | 2017-02-06 07:45 | PN- Housestaff ---
See Addendum Subjective Follow-up For: aspiration pneumonia Subjective: pt was seen today, would not open her eyes to command, but was able to squeeze my fingers. she is on restrains due to risk of pulling out ng tube. lungs sounded rhonchorous but i did not appreciate crackles. she is on ivf 75ml/ hr, + abx, npo, with ng tube in for meds. will discuss goals of care once repeat swallow eval done. Review of Systems Constitutional: Reports: see HPI. Objective Last 24 Hrs of Vital Signs/I&O Vital Signs Date Time Temp Pulse Resp B/P B/P Pulse O2 O2 Flow FiO2 Mean Ox Delivery Rate 02/06 0850 152/70 02/06 0724 98.6 68 20 174/60 94 Room Air 02/05 2235 97.9 72 20 160/80 92 02/05 1422 97.8 60 20 112/80 93 Room Air Intake & Output 02/06 1600 02/06 0800 02/06 0000 Intake Total 600 660 Output Total Balance 600 660 Intake, IV 600 600 Intake, Other 60 Number 1 1 Bowel Movements Physical Exam General Appearance: lethargic, not verbal , in no respiratory distress HEENT: Atraumatic Cardiovascular: Regular Rate, Normal S1, Normal S2 Lungs: rhonchi both right and left no crackles Abdomen: Normal Bowel Sounds, Soft, No Tenderness Extremities: No Edema Current Medications: Current Medications Sig/Deja Start time Last Medication Dose Route Stop Time Status Admin Acetaminophen 1,000 MG Q6P PRN 02/05 0030 AC IV Ampicillin Sodium/ 1,500 MG Q6 02/05 0100 AC 02/06 Sulbactam Sodium IV 0515 Sodium Chloride 100 ML Carbidopa/Levodopa 1 TAB TID 02/05 1600 DC PO Carbidopa/Levodopa 2 TAB TID 02/05 1600 AC 02/05 PO 2121 Dextrose/Sodium 1,000 ML Q13H 02/05 1415 AC 02/06 Chloride IV 0515 Diclofenac Sodium 1 KELLEY 4 TIMES/DAY PRN 02/05 0030 AC TOP Enoxaparin Sodium 40 MG DAILY 02/05 1000 AC 02/05 SC 1024 Guaifenesin 10 ML Q4P PRN 02/05 1145 AC PO Hydroxyzine HCl 25 MG AT BEDTIME 02/05 2200 AC 02/05 PO 2121 Lisinopril 5 MG DAILY 02/06 1000 AC PO Melatonin 3 MG AT BEDTIME 02/05 1930 AC 02/05 PO 2121 Nitrofurantoin 100 MG DAILY 02/05 1415 DC PO Pramipexole 0.75 MG TID 02/05 1600 AC 02/05 Dihydrochloride PO 2121 Sodium Chloride 1,000 ML CONTINOUS INFUSION 02/05 0030 DC 02/05 IV 02/06 0308 0128 Last 24 Hrs of Lab/Elver Results Last 24 Hrs of Labs/Mics: Laboratory Tests 02/06/17 0620: Anion Gap 9, Estimated GFR > 60, BUN/Creatinine Ratio 18.6, CBC w Diff NO MAN DIFF REQ, RBC 3.37 L, MCV 91.7, MCH 30.8, RDW 14.1, MPV 7.8, Gran % 78.1 H, Lymphocytes % 14.4 L, Monocytes % 6.2, Eosinophils % 1.1, Basophils % 0.2, Absolute Granulocytes 4.9, Absolute Lymphocytes 0.9 L, Absolute Monocytes 0.4, Absolute Eosinophils 0.1, Absolute Basophils 0, PUBS MCHC 33.6 02/05/17 1150: Lactic Acid 0.9 02/05/17 1150: Anion Gap 8, Estimated GFR > 60, BUN/Creatinine Ratio 24.3, CBC w Diff NO MAN DIFF REQ, RBC 3.50 L, MCV 91.3, MCH 30.8, RDW 14.3, MPV 7.4, Gran % 73.0, Lymphocytes % 19.4 L, Monocytes % 5.7, Eosinophils % 1.6, Basophils % 0.3, Absolute Granulocytes 4.7, Absolute Lymphocytes 1.2, Absolute Monocytes 0.4, Absolute Eosinophils 0.1, Absolute Basophils 0, PUBS MCHC 33.7 Assessment/Plan Assessment: 86 yo F with h/o advanced dementia, Parkinson's disease, HTN, 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 CXR: opacities right lung base, left retrocardiac opacity. # Aspiration pneumonia - urine legionella and strep Ag negative * admit to [facility] admit * follow panculture * NPO, failed swallow eval, repeat swallow eval 02/07/17. * IV fluids d51/2 ns at 75ml/hr * NG tube placed 02/05/17 for meds, CXR confirmed placement, on restrains due to risk of pulling out NG tube * IV Unasyn * PT recc 24 hr home care # Parkinson # HTN # Recurrent UTI * Continue home meds sinemet, pramipexole, lisinopril, hydroxyzine, melatonin * Hold nitrafurantoin for recurrent UTI as pt getting unasyn Diet: NPO DVT ppx: Lovenox. DNR/DNI Problem List: 1. Aspiration pneumonia Pain Ratin Pain Location: none Pain Goal: Remain pain free Pain Plan: none Tomorrow's Labs & Rationales: none DVT/Prophylaxis: mechanical, pharmacological
[2017-02-06 07:56] LABS: ABSOLUTE BASOPHIL COUNT 0 /CUMM (0.0-0.2); ABSOLUTE EOSINOPHIL COUNT 0.1 /CUMM (0.0-0.7); ABSOLUTE GRANULOCYTE CT 4.9 /CUMM (1.4-6.5); ABSOLUTE LYMPH COUNT 0.9 /CUMM (1.2-3.4); ABSOLUTE MONOCYTE COUNT 0.4 /CUMM (0.10-0.60); BASOPHIL % 0.2 % (0.0-2.0); EOSINOPHIL % 1.1 % (0-5); GRANULOCYTE % 78.1 % (42.2-75.2); HEMATOCRIT 30.9 % (37-47); MEAN CORPUSCULAR HGB 30.8 PG (27.0-31.0); MEAN CORPUSCULAR HGB CONC 33.6 G/DL (33.0-37.0); MEAN CORPUSCULAR VOLUME 91.7 FL (81.0-99.0); MEAN PLATELET VOLUME 7.8 FL (7.4-10.4); PLATELET COUNT 201 /CUMM (130-400); RBC DISTRIBUTION WIDTH 14.1 % (11.5-14.5); RED BLOOD CELL CT 3.37 /CUMM (4.20-5.40); WHITE BLOOD CELL COUNT 6.3 /CUMM (4.8-10.8)
[2017-02-06 08:50] VITALS: BP 152/70
--- NOTE | 2017-02-06 09:02 | NUR ---
SPOKE TO JOEL SCHMIDT. INFORMED THAT LUNGS WERE RHONCEROUS WITH LOWER LOBE CRACKLES, BP AT 152/70, FLUIDS RUNNING AT 75. ASKED TO COME ASSESS PT.
[2017-02-06 09:30] VITALS: BP 148/72
--- NOTE | 2017-02-06 09:30 | NUR ---
SPOKE WITH JOEL SCHMIDT. SAID TO KEEP RATE OF FLUIDS AT 75.
[2017-02-06 14:14] VITALS: BP 110/60
[2017-02-06 21:52] VITALS: BP 118/68
--- NOTE | 2017-02-07 07:14 | PN- Housestaff ---
MARIA DEL CARMEN GAFFNEY,JOEL 02/07/17 0714: Subjective Follow-up For: aspiration pneumonia failed swallow evaluation Subjective: Pt seen this morning around 7am, was calm, in no respiratory distress. Around 9am she appeared agitated and was yelling at the nurses, her family member was at bedside calming her down. I did not want to give her any sedative as she will be getting repeat swallow evaluation today. Lung continue to sound rhonchorous. not worse compared to yesterday. not able to get reliable history from patient Review of Systems Constitutional: Reports: see HPI. Objective Last 24 Hrs of Vital Signs/I&O Vital Signs Date Time Temp Pulse Resp B/P B/P Pulse O2 O2 Flow FiO2 Mean Ox Delivery Rate 02/07 1139 88 138/72 02/07 0732 97.6 79 19 116/60 94 Room Air 02/06 2152 97.6 80 18 118/68 93 02/06 1900 Room Air 02/06 1414 97.0 68 18 110/60 95 Room Air Intake & Output 02/07 1600 02/07 0800 02/07 0000 Intake Total 150 400 Output Total 200 Balance 150 200 Intake, IV 150 400 Intake, Oral 0 Number 1 Bowel Movements Output, Urine 200 Patient 48.081 kg Weight Physical Exam General Appearance: Alert, Cooperative, No Acute Distress, * was agitated when seen later Cardiovascular: Normal S1, Normal S2 Lungs: diffuse rhonchi Abdomen: Normal Bowel Sounds, Soft, No Tenderness Extremities: No Edema Current Medications: Current Medications Sig/Deja Start time Last Medication Dose Route Stop Time Status Admin Acetaminophen 1,000 MG Q6P PRN 02/05 0030 AC IV Ampicillin Sodium/ 1,500 MG Q6 02/05 0100 AC 02/07 Sulbactam Sodium IV 1138 Sodium Chloride 100 ML Carbidopa/Levodopa 2 TAB TID 02/05 1600 02/07 PO 1139 Dextrose/Sodium 1,000 ML Q20H 02/06 1715 AC 02/06 Chloride IV 1759 Dextrose/Sodium 1,000 ML Q13H 02/05 1415 DC 02/06 Chloride IV 1635 Diclofenac Sodium 1 KELLEY 4 TIMES/DAY PRN 02/05 0030 AC TOP Enoxaparin Sodium 40 MG DAILY 02/05 1000 AC 02/07 SC 1138 Guaifenesin 10 ML Q4P PRN 02/05 1145 AC PO Hydroxyzine HCl 25 MG AT BEDTIME 02/05 2200 AC 02/06 PO 2030 Insulin Human Regular 0 Q6 02/07 0001 DC 02/07 SC 0015 Lisinopril 5 MG DAILY 02/06 1000 AC 02/07 PO 1139 Melatonin 3 MG AT BEDTIME 02/05 1930 AC 02/06 PO 2030 Pramipexole 0.75 MG TID 02/05 1600 AC 02/07 Dihydrochloride PO 1139 Assessment/Plan Assessment: 86 yo F with h/o advanced dementia, Parkinson's disease, HTN, right heel osteomyelitis s/p I and D with 4 weeks of antibiotics (2014), is brought in by family for concerns of aspiration pneumonia given 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 CXR: opacities right lung base, left retrocardiac opacity. # Aspiration pneumonia - urine legionella and strep Ag negative * admit to [facility] admit * follow panculture * NPO, failed swallow eval, repeat swallow eval 02/07/17. * IV fluids d51/2 ns at 55ml/hr * NG tube placed 02/05/17 for meds, CXR confirmed placement, on restrains due to risk of pulling out NG tube * IV Unasyn * PT recc 24 hr home care # Parkinson # HTN # Recurrent UTI * Continue home meds sinemet, pramipexole, lisinopril, hydroxyzine, melatonin * Hold nitrafurantoin for recurrent UTI as pt getting unasyn Diet: NPO DVT ppx: Lovenox. DNR/DNI Problem List: 1. Aspiration pneumonia Pain Ratin Pain Location: none Pain Goal: Remain pain free Pain Plan: mild pp Tomorrow's Labs & Rationales: bep for electrolytes, only on ivf cbc for aspiration pna DVT/Prophylaxis: mechanical, pharmacological MEGHANN,MANIK 02/07/17 1157: Attending MD Review Statement Attending Statement Attending MD Statement: examined this patient, discuss w/resident/PA/BINDERY WORKER, agreed w/resident/PA/BINDERY WORKER, discussed with family, reviewed EMR data (avail), discussed with nursing, discussed with case mgmt, reviewed images, amended to note Attending Assessment/Plan: A/P; 86 y/o F with pmh sig for advanced dementia, Parkinson's disease, HTN, admitted with possible aspiration pneumonia. Patient failed swallow evaluation. Patient remains poor historian. Swallow evaluation repeat today If patient continues to fail, goals of care will need to be discussed with patient's daughter for PEG tube feeding vs comfort care. Continue current antibiotics. Continue gentle IV hydration. DVT px: Lovenox
[2017-02-07 07:32] VITALS: BP 116/60
[2017-02-07 15:00] VITALS: BP 110/60
[2017-02-07] MEDS ORDERED: AUGMENTIN 875-1 EACH PO (16:09)
--- NOTE | 2017-02-07 16:11 | Patient Discharge Instructions ---
Discharge Instructions General Discharge Information You were seen/treated for: Aspiration pneumonia Difficulty swallowing Special Instructions: -Please follow up with PCP in 1 week -Please eat puree and honey thick diet, including for medications - Resume macrobid once finish antibiotics course with augmentin. Diet Continue normal diet: No Recommended Diet: Puree + Honey thick Activity Full Activity/No Limits: Yes Acute Coronary Syndrome Inclusion Criteria At DC or during hospital stay patient has or had the following: ACS DIAGNOSIS No Discharge Core Measures Meds if any: Prescribed or Continued at Discharge Meds if any: NOT Prescribed or Continued at Discharge Congestive Heart Failure Inclusion Criteria At DC or during hospital stay patient has or had the following: CHF DIAGNOSIS No Discharge Core Measures Meds if any: Prescribed or Continued at Discharge Meds if any: NOT Prescribed or Continued at Discharge Cerebrovascular accident Inclusion Criteria At DC or during hospital stay patient has or had the following: CVA/TIA Diagnosis No Discharge Core Measures Meds if any: Prescribed or Continued at Discharge Meds if any: NOT Prescribed or Continued at Discharge Venous thromboembolism Inclusion Criteria VTE Diagnosis No VTE Type NONE VTE Confirmed by (Test) NONE Discharge Core Measures - Per Current guidelines, there needs to be overlap - treatment for the first 5 days of Warfarin therapy. - If discharged on Warfarin prior to 5 days of - overlap therapy, the patient will need to be - assessed for post discharge needs including - *Post discharge parental anticoagulation - *Warfarin and/or parental anticoagulation education - *Follow up date to check INR post discharge At least 5 days overlap therapy as Inpatient No Meds if any: Prescribed or Continued at Discharge Note: Overlap Therapy is Warfarin and Anticoagulant Meds if any: NOT Prescribed or Continued at Discharge
[2017-02-07 23:42] VITALS: BP 120/56
[2017-02-08 06:34] VITALS: BP 152/74
--- NOTE | 2017-02-08 07:06 | PN- Housestaff ---
MARIA DEL CARMEN GAFFNEY,JOEL 02/08/17 0706: Subjective Follow-up For: aspiration pneumonia Subjective: Pt passed swallow evaluation and was advanced to puree and honey. nurse reported she tolerated diet well , she ate 50% of her dinner yesterday. if she continues to tolerate diet well, will dc fluids, and possible discharge today. pt has 24 hr home care at home. She was agitated this morning, refused to be examined. When I came back later, she let me listen to her lungs, which sounded clear. labs reviewed, k a little low, will replete with ana laura. I spoke to granddaughter, Constance, about discharge plan today, she is agreeable, I tried to get in touch with pt's daughter, Tamara, but it went to voicemail. Constance will update Tamara. I gave them my number to call back if they have any questions or concerns. Family later called me and was concerned. They clarified that patient does not have nursing/pt help at home; rather it is the family members that are helping her with ADLs. I spoke to Donna who will call them and set up appropriate home help. Review of Systems Constitutional: Reports: see HPI. Objective Last 24 Hrs of Vital Signs/I&O Vital Signs Date Time Temp Pulse Resp B/P B/P Pulse O2 O2 Flow FiO2 Mean Ox Delivery Rate 02/08 0634 98.1 80 18 152/74 95 Room Air 02/07 2342 99.6 80 20 120/56 91 Room Air 02/07 1500 97.8 73 18 110/60 94 02/07 1139 88 138/72 02/07 0800 Room Air Intake & Output 02/08 0800 02/08 0000 02/07 1600 Intake Total 600 620 485 Output Total Balance 600 620 485 Intake, IV 600 500 425 Intake, Oral 120 Intake, Other 60 Number 0 1 Bowel Movements Patient 48.081 kg Weight Physical Exam General Appearance: agitated , awake , could not examine pt as she was flailing her arms around, telling me to go away Lungs: LUNGS SOUNDED CLEAR WHEN EXAMINED LATER Current Medications: Current Medications Sig/Deja Start time Last Medication Dose Route Stop Time Status Admin Acetaminophen 1,000 MG Q6P PRN 02/05 0030 AC IV Ampicillin Sodium/ 1,500 MG Q6 02/05 0100 AC 02/08 Sulbactam Sodium IV 0519 Sodium Chloride 100 ML Carbidopa/Levodopa 2 TAB TID 02/05 1600 AC 02/07 PO 2102 Dextrose/Sodium 1,000 ML Q20H 02/06 1715 AC 02/06 Chloride IV 1759 Diclofenac Sodium 1 KELLEY 4 TIMES/DAY PRN 02/05 0030 AC TOP Enoxaparin Sodium 40 MG DAILY 02/05 1000 AC 02/07 SC 1138 Guaifenesin 10 ML Q4P PRN 02/05 1145 AC PO Hydroxyzine HCl 25 MG AT BEDTIME 02/05 2200 AC 02/07 PO 2101 Insulin Human Regular 0 Q6 02/07 0001 DC 02/07 SC 0015 Lisinopril 5 MG DAILY 02/06 1000 AC 02/07 PO 1139 Melatonin 3 MG AT BEDTIME 02/05 1930 AC 02/07 PO 2102 Pramipexole 0.75 MG TID 02/05 1600 AC 02/07 Dihydrochloride PO 2102 Assessment/Plan Assessment: 86 yo F with h/o advanced dementia, Parkinson's disease, HTN, 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 CXR: opacities right lung base, left retrocardiac opacity. # Aspiration pneumonia - urine legionella and strep Ag negative * admit to [facility] admit * follow panculture - sputum sample not obtained. BC NGTD. * She failed swallow evaluation on 02/05/17, NG tube placed 02/05/17 for meds, CXR confirmed placement, was the placed on restrains due to risk of pulling out NG tube. Repeat swallow eval on 02/07/17 was done and she did better, diet was advanced to puree and honey. NGT and restrains discontinued 02/07/17. * IV fluids d51/2 ns at 50ml/hr , can dc if tolerating diet well * IV Unasyn, dc on augmentin * PT recc 24 hr home care # Parkinson # HTN # Recurrent UTI * Continue home meds sinemet, pramipexole, lisinopril, hydroxyzine, melatonin * Hold nitrafurantoin for recurrent UTI as pt getting unasyn Diet: regular diet puree and honey thick DVT ppx: Lovenox. DNR/DNI Problem List: 1. Aspiration pneumonia Pain Ratin Pain Location: none Pain Goal: Remain pain free Pain Plan: mild pp Tomorrow's Labs & Rationales: none DVT/Prophylaxis: mechanical, pharmacological ARISTIDES ZAVALETA 02/08/17 1104: Attending MD Review Statement Attending Statement Attending MD Statement: examined this patient, discuss w/resident/PA/SPANISH LINGUIST, agreed w/resident/PA/SPANISH LINGUIST, discussed with family, reviewed EMR data (avail), discussed with nursing, discussed with case mgmt, reviewed images, amended to note Attending Assessment/Plan: A/P; 86 y/o F with pmh sig for advanced dementia, Parkinson's disease, HTN, admitted with possible aspiration pneumonia. Patient remains poor historian. Swallow evaluation repeat passed with follow recommendations Change to PO abx, complete course x 7 days total. DVT px: Lovenox overall prognosis poor. family updated
--- NOTE | 2017-02-08 07:50 | Discharge Summary ---
Visit Information Visit Dates Admission Date: 02/04/17 Discharge Date: 02/09/17 Hospital Course Course Attending Physician: ARISTIDES ZAVALETA MD Primary Care Physician: HARMEET GAFFNEY,[facility] Course: Patient is 86-year-old woman with a past medical history significant for hypertension and hyperlipidemia, chronic kidney disease, parkinsonism's, dementia presented to the ED for further evaluation of difficulty swallowing with cough. Patient was minimally verbal at the time of evaluation, so most of the history was obtained from the family. 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 The family was concerned about the aspiration and started her on thickened liquids. Also they found difficulty in administration of some of her medications. 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 No episode of chest discomfort or trouble breathing or palpitations. No diarrhea or constipation nausea or vomiting. The family were concerned about possible aspiration and brought to the ED for further evaluation. Vitals on admission: Temperature 101, pulse 90, respiratory rate 15, blood pressure 110/66 saturating more than 92% on room air. PE: Minimally verbal, rhonchi present over both right and left lung martinez, worse at the bases Pertinent labs on admission: Normal WBC count, H&H low 10.2/30.3, slight hyponatremia hyponatremia 134 Chest x-ray: Opacities within the medial region of the right lung base. Left retrocardiac opacities are also noted. These findings are nonspecific and may reflect atelectasis although superimposed infection cannot be excluded. Consider correlation with PA and lateral chest x-ray. Patient was admitted to general medicine for aspiration pneumonia and dysphagia. She was started on IV unasyn, and subsequently discharged on augmentin to complete 7 day course of antibiotics. BCX2 showed NGTD. Sputum sample cannot be obtained. Urine legionella and strep pneumo was negative. She failed swallow evaluation on 02/05/17, NG tube placed 02/05/17 for meds, CXR confirmed placement, was the placed on restrains due to risk of pulling out NG tube. She was maintained on D51/2NS. Repeat swallow eval on 02/07/17 was done and she did better, diet was advanced to puree and honey. NGT and restrains discontinued 02/07/17. IVF was discontinued once patient tolerated diet well. Physical therapy recommended 24 hour home care. Family clarified that patient does not have nursing/PT help at home prior to admission; rather it is the family members that are helping her with ADLs. Family decided to send patient to rehab. Allergies: Coded Allergies: NO KNOWN ALLERGIES (02/04/17) Disposition Summary Disposition Principal Diagnosis: Aspiration PNA Additional Diagnosis: Dysphagia Discharge Disposition: SNF Discharge Instructions General Discharge Information Code Status: Do Not Resucitate/Intubat Patient's Diet: Regular diet, puree and honey thick Patient's Activity: As tolerated Follow-Up Instructions/Appts: F/U with PCP in 1 week Medications at Discharge Discharge Medications: Continue taking these medications: Nitrofurantoin Monohyd/M-Cryst (Nitrofurantoin Merrick-Mcr 100 MG) 100 MG CAPSULE 1 Capsule ORAL DAILY Qty = 90 Comments: NOT GIVEN Carbidopa/Levodopa (Carbidopa-Levodopa 25-100 Tab) 25 MG-100 MG TABLET 1 Tablet ORAL THREE TIMES DAILY Qty = 180 Comments: Last Taken:02/08/17 Time:9AM Hydroxyzine HCl (Hydroxyzine HCl) 25 MG TABLET 0.5-1 Tablet ORAL TAKE AT BEDTIME Qty = 30 Comments: Last Taken:02/07/17 Time:10PM Pramipexole Di-HCl (Pramipexole Dihydrochloride) 0.75 MG TABLET 1 Tablet ORAL THREE TIMES DAILY Qty = 270 Comments: Last Taken:02/08/17 Time:9AM Lisinopril (Lisinopril) 5 MG TABLET 1 Tablet ORAL DAILY Qty = 90 Comments: Last Taken:02/08/17 Time:9AM Start taking the following new medications: Melatonin (Melatonin) 3 MG TABLET 3 Milligram ORAL AT BEDTIME as needed for sleep Days = 30 No Refills Augmentin (Augmentin 500-125 Tablet) 500 MG-125 MG TABLET 1 Tablet ORAL TWICE DAILY Days = 3 No Refills Copies To: DENY GA MD Attending MD Review Statement Documenting Attending: ARISTIDES ZAVALETA MD
[2017-02-08 08:52] LABS: ABSOLUTE BASOPHIL COUNT 0 /CUMM (0.0-0.2); ABSOLUTE EOSINOPHIL COUNT 0.1 /CUMM (0.0-0.7); ABSOLUTE GRANULOCYTE CT 4.7 /CUMM (1.4-6.5); ABSOLUTE LYMPH COUNT 1.1 /CUMM (1.2-3.4); ABSOLUTE MONOCYTE COUNT 0.4 /CUMM (0.10-0.60); BASOPHIL % 0.3 % (0.0-2.0); EOSINOPHIL % 1.7 % (0-5); GRANULOCYTE % 74.2 % (42.2-75.2); HEMATOCRIT 32.5 % (37-47); MEAN CORPUSCULAR HGB 30.6 PG (27.0-31.0); MEAN CORPUSCULAR HGB CONC 33.8 G/DL (33.0-37.0); MEAN CORPUSCULAR VOLUME 90.4 FL (81.0-99.0); MEAN PLATELET VOLUME 7.4 FL (7.4-10.4); PLATELET COUNT 258 /CUMM (130-400); RBC DISTRIBUTION WIDTH 13.9 % (11.5-14.5); WHITE BLOOD CELL COUNT 6.3 /CUMM (4.8-10.8)
--- NOTE | 2017-02-08 12:11 | NUR ---
Physical Therapy: In previous Evaluation pt's baseline was that she had 24 hour care at home. This is no longer the case. Based on pt's IE and the fact that she does not have 24 hour care at home she will req STR upon discharge from as she is assist x1 for all bed mobility. Will change the d/c recommendation to STR at this time. Thank you.
[2017-02-08 14:22] VITALS: BP 138/70
[2017-02-08 22:52] VITALS: BP 140/55
[2017-02-09 06:58] VITALS: BP 130/74
--- NOTE | 2017-02-09 07:02 | PN- Housestaff ---
MARIA DEL CARMEN GAFFNEY,JOEL 02/09/17 0701: Subjective Follow-up For: aspiration pneumonia Subjective: pt reports feeling "fine". was calm, in no distress. minimally verbal at baseline plan to dc to rehab today Review of Systems Constitutional: Reports: see HPI. Objective Last 24 Hrs of Vital Signs/I&O Vital Signs Date Time Temp Pulse Resp B/P B/P Pulse O2 O2 Flow FiO2 Mean Ox Delivery Rate 02/09 0658 98.1 68 20 130/74 91 Room Air 02/09 0000 Room Air 02/08 2252 97.5 84 18 140/55 93 Room Air 02/08 1808 Room Air Room Air 02/08 1803 Room Air Room Air 02/08 1422 98.7 81 18 138/70 93 02/08 0932 98.1 80 18 152/74 Intake & Output 02/09 0800 02/09 0000 02/08 1600 Intake Total 660 620 860 Output Total Balance 660 620 860 Intake, IV 300 400 400 Intake, Oral 360 220 460 Physical Exam General Appearance: Alert, Cooperative, No Acute Distress Cardiovascular: Regular Rate, Normal S1, Normal S2, No Murmurs Lungs: Clear to Auscultation Abdomen: Normal Bowel Sounds, Soft, No Tenderness Extremities: No Edema Current Medications: Current Medications Sig/Deja Start time Last Medication Dose Route Stop Time Status Admin Acetaminophen 1,000 MG Q6P PRN 02/05 0030 IV Ampicillin Sodium/ 1,500 MG Q6 02/05 0100 02/09 Sulbactam Sodium IV 0454 Sodium Chloride 100 ML Carbidopa/Levodopa 2 TAB TID 02/05 1600 AC 02/08 PO 2102 Dextrose/Sodium 1,000 ML Q20H 02/06 1715 AK 02/08 Chloride IV 1713 Diclofenac Sodium 1 KELLEY 4 TIMES/DAY PRN 02/05 0030 AC TOP Enoxaparin Sodium 40 MG DAILY 02/05 1000 AC 02/08 SC 0931 Guaifenesin 10 ML Q4P PRN 02/05 1145 PO Hydroxyzine HCl 25 MG AT BEDTIME 02/05 2200 AC 02/08 PO 210 Lisinopril 5 MG DAILY 02/06 1000 AC 02/08 PO 0932 Melatonin 3 MG AT BEDTIME 02/05 1930 AC 02/08 PO 210 Potassium Chloride 40 MEQ ONCE ONE 02/08 0945 DC 05/16 PO 02/08 0946 1211 Pramipexole 0.75 MG TID 02/05 1600 AC 02/08 Dihydrochloride PO 2101 Last 24 Hrs of Lab/Elver Results Last 24 Hrs of Labs/Mics: Laboratory Tests 02/09/17 0620: Sodium Pending, Potassium Pending, Chloride Pending, Carbon Dioxide Pending, Anion Gap Pending, BUN Pending, Creatinine Pending, BUN/Creatinine Ratio Pending 02/08/17 0756: Anion Gap 12, Estimated GFR > 60, BUN/Creatinine Ratio 16.7, CBC w Diff NO MAN DIFF REQ, RBC 3.60 L, MCV 90.4, MCH 30.6, RDW 13.9, MPV 7.4, Gran % 74.2, Lymphocytes % 17.6 L, Monocytes % 6.2, Eosinophils % 1.7, Basophils % 0.3, Absolute Granulocytes 4.7, Absolute Lymphocytes 1.1 L, Absolute Monocytes 0.4, Absolute Eosinophils 0.1, Absolute Basophils 0, PUBS MCHC 33.8 Assessment/Plan Assessment: 86 yo F with h/o advanced dementia, Parkinson's disease, HTN, right heel osteomyelitis s/p I and D with 4 weeks of antibiotics (2014), is brought in by family for concerns of aspiration pneumonia given 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 CXR: opacities right lung base, left retrocardiac opacity. # Aspiration pneumonia - urine legionella and strep Ag negative * admit to [facility] admit * follow panculture - sputum sample not obtained. BC NGTD. * She failed swallow evaluation on 02/05/17, NG tube placed 02/05/17 for meds, CXR confirmed placement, was the placed on restrains due to risk of pulling out NG tube. Repeat swallow eval on 02/07/17 was done and she did better, diet was advanced to puree and honey. NGT and restrains discontinued 02/07/17. * IV fluids d51/2 ns at 50ml/hr discontinued as tolerating diet well * IV Unasyn changed to augmentin * PT recc 24 hr home care/rehab # Parkinson # HTN # Recurrent UTI * Continue home meds sinemet, pramipexole, lisinopril, hydroxyzine, melatonin * Hold nitrafurantoin for recurrent UTI as pt getting unasyn Diet: regular diet puree and honey thick DVT ppx: Lovenox. DNR/DNI Problem List: 1. Aspiration pneumonia Pain Ratin Pain Location: none Pain Goal: Remain pain free Pain Plan: none Tomorrow's Labs & Rationales: none DVT/Prophylaxis: mechanical, pharmacological ARISTIDES ZAVALETA 02/09/17 1101: Attending MD Review Statement Attending Statement Attending MD Statement: examined this patient, discuss w/resident/PA/ASSORTER LAUNDRY, agreed w/resident/PA/ASSORTER LAUNDRY, discussed with family, reviewed EMR data (avail), discussed with nursing, discussed with case mgmt, reviewed images, amended to note Attending Assessment/Plan: A/P; 86 y/o F with pmh sig for advanced dementia, Parkinson's disease, HTN, admitted with possible aspiration pneumonia. Patient remains poor historian. Swallow evaluation repeat passed with follow recommendations Change to PO abx, complete course x 7 days total. Patient to be discharged to rehab, family in agreement. DVT px: Lovenox overall prognosis poor.
[2017-02-09] MEDS ORDERED: AUGMENTIN 875-1 EACH PO (07:42)
[2017-02-09] MEDS ORDERED: AMOX-CLAV 875-1 EACH PO (09:03)
[2017-02-09] MEDS ORDERED: MELATONIN3 M4 PO (10:16)
[2017-02-09] MEDS ORDERED: AUGMENTIN 500-1 EACH PO (10:37)
[2017-02-09 11:28] VITALS: BP 130/74
== END 2017-02-09 13:30 | DRG 178 ==
LOC: DELPENDDIS → ERH 18:28 → 2NA 21:23 → ERHI 21:23 → ENRESERV 22:47 → 2NA 23:08 → ENPENDDIS 02-08 10:59 → 2NA 02-09 13:30
PROVIDERS: Emergency Medicine; Radiology Diagnostic Radiology; ADMIT Student in an Organized Health Care Education/Training Program
DX: J69.0 Pneumonitis due to inhalation of food and vomit (principal); G20 Parkinson's disease; E87.1 Hypo-osmolality and hyponatremia; R13.10 Dysphagia, unspecified; F02.80 Dementia in other diseases classified elsewhere, unspecified severity, without behavioral disturbance, psychotic disturbance, mood disturbance, and anxiety; I10 Essential (primary) hypertension; E78.5 Hyperlipidemia, unspecified; N18.9 Chronic kidney disease, unspecified; Z66 Do not resuscitate
CPT/HCPCS: 2NASP; 36415; 81003; 82436; 87040; 87070; 87086; 87449; 87450; 93005; 93010; 97161-GP; J0131; J0713; J1650; J1815; J3490; J7042